=== PATIENT | male | born 1945 | race Caucasian/White ===

== ENCOUNTER 2024-02-19 08:30 | Day surgery (SDC) | payer MEDICARE, OTHER, SELFPAY ==
--- NOTE | 2024-02-19 | PATH_ITS ---
[facility] Accession Number: [id number] No. of containers..01 Tissue . 01 Material submitted: . colon - DESCENDING POLYP . 01 Diagnosis: DESCENDING POLYP: Tubular adenoma. [facility] 02/20/2024 1634 Local . 01 Electronically signed: . Satinder Day MD, Pathologist NPI- [id number] . 01 Gross description: . DESCENDING POLYP: Received in formalin is 1 fragment(s) of piper, soft tissue measuring 0.6 x 0.3 x 0.3 cm submitted entirely in 1 cassette(s) /LUKE 02/20/2024 1634 Local . 01 Pathologist provided ICD-10: D12.4 . 01 CPT . 834684 Specimen Comment: A courtesy copy of this report has been sent to [phone] Performed at: [address] [id number] MD Satinder Day MD Phone: [phone]
[2024-02-19 09:46] VITALS: BP 148/79; PULSE 84; RESP 14; TEMP 36.2; O2SAT 98
--- NOTE | 2024-02-19 10:27 | PM.HP.1 ---
History of Present Illness History of Present Illness Date Patient Seen: 02/19/24 Time Patient Seen: 10:27 Chief complaint: Colonoscopy Narrative: Lamonte is here for his colonoscopy. Hemorrhoid that was bothering him during the summer resolved after about a week and he has no current symptoms. See the office note from October for details. [facility] Medical History (Updated 02/19/24 @ 10:28 by Alexander Key MD) Colon cancer screening Hypertension Gout GERD (gastroesophageal reflux disease) Hyperuricemia History of melanoma IBS (irritable bowel syndrome) Elevated PSA Meds Home Medications and Allergies Home Medications Medication Instructions Recorded Confirmed Type alfuzosin 10 mg tablet,extended 10 mg PO DAILY 11/12/23 02/19/24 History release 24 hr allopurinol 300 mg tablet 300 mg PO DAILY 11/12/23 02/19/24 History aspirin 325 mg tablet 325 mg PO QWEEK 11/12/23 02/19/24 History atorvastatin 80 mg tablet 80 mg PO 2XW 11/12/23 02/19/24 History cetirizine 10 mg tablet (Zyrtec) 10 mg PO DAILY PRN Pain (Scale 11/12/23 02/19/24 History Score 4-6) finasteride 5 mg tablet 5 mg PO DAILY 11/12/23 02/19/24 History lisinopril 20 mg tablet 20 mg PO DAILY 11/12/23 02/19/24 History naproxen 500 mg tablet 500 mg PO BID PRN Pain, Moderate 11/12/23 02/19/24 History sodium,potassium,mag sulfates 17.5 See Rx Instructions PO .COMPLEX 01/01/24 Rx gram-3.13 gram-1.6 gram oral soln #354 mL (Suprep Bowel Prep Kit) Allergies Allergy/AdvReac Type Severity Reaction Status Date / Time No Known Drug Allergies Allergy Verified 02/19/24 09:32 Exam Vital Signs (past 8 hours): - 02/19/24 09:46 Temperature 97.2 F L Pulse Rate 84 Respiratory Rate 14 Blood Pressure 148/79 H Pulse Oximetry 98 Oxygen Delivery Method Room Air Oxygen Delivery Method Room Air Const General: healthy appearing Assessment & Plan Assessment and plan (1) Colon cancer screening: Status: Acute Plan Colonoscopy Time-Based Coding :: [TOTAL MINUTES] spent with patient and on the chart (including review of chart, obtaining history, exam, reviewing outside data, placing orders, documenting exam and treatment plan, and counseling patient) on [DATE].
[2024-02-19 11:05] VITALS: BP 92/61; PULSE 70; RESP 16; TEMP 36.3; O2SAT 93
--- NOTE | 2024-02-19 11:08 | PM.OP.COLON ---
Operative Date/Time/Diagnoses Date of procedure: 02/19/24 Time of procedure: 11:08 Pre-op diagnosis: Colon cancer screening Post-op diagnosis: same Procedure & Clinicians Study performed: Colonoscopy Same procedure as scheduled: Yes Surgeon: Alexander Key Procedure Notes Procedure in detail: Surgeon: Alexander Key MD Anesthesia: Kim Jones CRNA Procedure: The patient was brought to the endoscopy suite, placed in left lateral decubitus position. The patient was connected to monitoring devices. A time-out was performed. Sedation was administered. Once the patient was adequately sedated, a digital rectal exam was performed and was normal. The scope was then inserted and advanced to the cecum where the appendiceal orifice was identified and photographed. The scope was then slowly withdrawn over greater than 6 minutes. The mucosa was thoroughly inspected. There was 7 mm sessile polyp in the descending colon removed with a cold snare. The scope was retroflexed in the rectum. No other abnormalities were found. The scope was straightened and removed. The patient was awakened and brought to recovery. Scope withdrawal time: 15 minutes Sedation time: 22 minutes EBL: 2 mL Findings: 7 mm sessile polyp in the descending colon Post-procedure Disposition: PACU
[2024-02-19 11:10] VITALS: BP 97/61; PULSE 64; RESP 16; O2SAT 94
[2024-02-19 11:15] VITALS: BP 91/47; PULSE 75; RESP 17; O2SAT 94
[2024-02-19 11:20] VITALS: BP 90/63; PULSE 72; RESP 16; TEMP 37.2; O2SAT 94
[2024-02-19 11:35] VITALS: BP 118/71; PULSE 84
== END 2024-02-19 11:44 | disposition home or self-care (01) ==
PROVIDERS: PCP Internal Medicine; Referring Provider Surgery; Visit Provider Surgery
PROC: 0DJD8ZZ Inspection of Lower Intestinal Tract, Via Natural or Artificial Opening Endoscopic (ICD-10-PCS; CPT 45378; principal; 2024-02-19 10:30)
DX: Z12.11 Encounter for screening for malignant neoplasm of colon (principal); D12.4 Benign neoplasm of descending colon
CPT/HCPCS: 45385; J2704